=== PATIENT | female | born 1950 | race Caucasian/White ===

== ENCOUNTER → 2017-08-09 | Outpatient (CLI) | payer MEDICARE, OTHER ==
--- NOTE | 2017-08-11 09:22 | MM ---
Reason for exam: screening (asymptomatic). Last mammogram was performed 1 year and 5 months ago. History: Patient is postmenopausal. Physical Findings: A clinical breast exam by your physician is recommended on an annual basis and results should be correlated with mammographic findings. MG 3D Screening Mammo W/Cad Bilateral CC and MLO view(s) were taken. Prior study comparison: March 19, 2016, bilateral MG 3d screening mammo w/cad. May 17, 2014, bilateral MG screening mammo w CAD. There are scattered fibroglandular densities. No significant changes when compared with prior studies. ASSESSMENT: Negative, BI-RAD 1 RECOMMENDATION: Routine screening mammogram of both breasts in 1 year.
== END | disposition home or self-care (01) ==
LOC: RADMAMWWP 16:27
PROVIDERS: ATTEND Family Medicine
DX: Z12.31 Encounter for screening mammogram for malignant neoplasm of breast (principal)
CPT/HCPCS: 77063; 77067

== ENCOUNTER 2017-09-06 09:32 | Day surgery (SDC) | payer MEDICARE, OTHER ==
[2017-09-02 09:09] VITALS: BMI 24.9
[~2017-09-06 09:32] MED LIST: LACTATED RINGERS 1,000 ML IV SCH; LIDOCAINE 1% 20 ML VIAL (10MG/ML) FOR IV START INTRADERMA PRN; MIDAZOLAM 2 MG/2 ML VIAL IV PRN
[2017-09-06 10:10] VITALS: TEMP 98.3
[2017-09-06] MEDS ORDERED: PROPOFOL 10 MG/ML 20 ML VIAL IV ONE (10:55)
[2017-09-06] MEDS ORDERED: LIDOCAINE 1% INJ 10MG/ML (20 ML MDV) ONE (10:55)
[2017-09-06 11:18] VITALS: RESP 16
--- NOTE | 2017-09-06 11:21 | P.PCN ---
Date of Procedure: 09/06/17 Procedure(s) Performed: Procedure: Total colonoscopy. Preoperative diagnosis: Screening for neoplasia. Postoperative diagnosis: Exam within normal limits. Preparation: HalfLytely prep. Sedation: Was provided by anesthesia. Brief clinical history: The patient is a 66-year-old female who is scheduled for this evaluation for screening for neoplasia age being her risk factor as well as history of polyps. She has no abdominal complaints, bleeding or anemia. She does have intermittent diarrhea. No family history of colon cancer. Her last colonoscopy was in 2011. Procedure: With the patient on her left lateral decubitus position and after informed consent and adequate sedation, the perianal area was inspected and it did not show any fissures or fistulas. There were no masses felt on digital rectal examination. The Olympus CFQ 160L video colonoscope was then inserted in the rectum in the usual fashion and advanced to the cecum. I intubated the ileocecal valve and examined the terminal ileum as well. The mucosa appeared healthy. No polyps or tumors were seen or any obvious diverticular disease or other pathology. I retroflexed the endoscope in the rectum before the endoscope was withdrawn. The patient tolerated the procedure well. Plan: The patient was reassured. She will follow-up with you as planned and I recommended repeat exam in 5 years.
[2017-09-06 11:30] VITALS: PULSE 70
[2017-09-06 11:42] VITALS: BP 133/71
== END 2017-09-06 11:57 | disposition home or self-care (01) ==
LOC: ORWHC2ENDO 09:32
DX: R19.7 Diarrhea, unspecified (principal); Z86.010 Personal history of colon polyps; M06.9 Rheumatoid arthritis, unspecified; Z79.82 Long term (current) use of aspirin; Z79.899 Other long term (current) drug therapy
CPT/HCPCS: 45378; J2001; J2704

== ENCOUNTER → 2018-01-21 | Outpatient (CLI) | payer MEDICARE, OTHER ==
--- NOTE | 2018-01-21 11:52 | EST ---
EXERCISE STRESS AGE: 67 SEX: F HT: 5'7" WT: 160 PROTOCOL: Ron Stress Test STAGE: I DURATION OF EXERCISE: 4:39 HEART RATE REST: 90 BLOOD PRESSURE REST: 145/80 MAXIMUM HEART RATE ACHIEVED: 126 MAXIMUM BLOOD PRESSURE: 186/83 85% MPHR: 130 100% MPHR: 153 METS: 6.2 INDICATIONS: Shortness of breath/hypertension. CLINICAL INFORMATION: Baseline heart rate 90 beats per minute. Baseline blood pressure 145/80 mmHg. Patient has a history of hypertension and shortness of breath. Baseline 12-lead ECG shows sinus rhythm with [address] depression inferiorly with PVCs. Patient exercised on a Ron protocol for 4 minutes, 39 seconds only achieving a peak heart rate of 126 beats per minute. She was short of breath and tired. Intermittent PVCs are noted. There was no definite ECG evidence for ischemia. Normal blood pressure response to exercise. No chest pain. IMPRESSION: 1. Baseline abnormal ECG. 2. Poor exercise capacity with shortness of breath and exertion. Normal blood pressure response to exercise. Occasional premature ventricular contractions. No definite ECG evidence for ischemia. Suggest pharmacologic stress testing because of low workload level achieved and given her symptoms. MMODL / IJN: [id number] /
== END | disposition home or self-care (01) ==
LOC: RADNMMAIN 08:47
PROVIDERS: ATTEND Family Medicine
DX: R94.31 Abnormal electrocardiogram [ECG] [EKG] (principal); R06.02 Shortness of breath; R61 Generalized hyperhidrosis
CPT/HCPCS: 93017

== ENCOUNTER → 2018-05-20 | Outpatient (CLI) | payer MEDICARE, OTHER ==
--- NOTE | 2018-05-25 17:11 | ENG ---
ELECTRONYSTAGMOGRAM REPORT VIDEO-ASSISTED ELECTRONYSTAGMOGRAM: DATE OF SERVICE: 05/20/2018. VNG INDICATIONS: This is a 67-year-old female with vertigo starting in January, gradual onset , overall improving; comes and goes in spells not further defined by patient. Dizziness can occur with position changes such as going from a lying to a seated position, looking up or head-back position, turning the head left or right, or bending over or head-down position, and dizziness is made worse by any movements of the head. Denies any hearing loss but has a steady right ear tinnitus. No pain, fullness or pressure in the ears. VNG FINDINGS: Saccades shows intact peak velocities, accuracies and latencies. Gaze with fixation shows no nystagmus in any of the directions of gaze, including centrally with vision denied. Tracking shows no significant breakups. Optokinetic nystagmus shows no significant asymmetry. Static position testing in 6 different positions with eyes opened and with vision denied shows no evoked nystagmus. Caloric testing shows bilateral caloric weakness. Dedham-Hallpike maneuver was not performed. IMPRESSION: There is bilateral caloric weakness, and so vestibulopathy could not be determined. Another test such as the head thrust test or, if available, active with passive rotation testing is required to confirm presence of bilateral vestibular weakness. Other aspects of this VNG study are unremarkable. No nystagmus noted and no signs for central nervous system dysfunction. MMODL / IJN: [id number] / ARNOLDO
== END | disposition home or self-care (01) ==
LOC: NEUROMAIN 12:55
PROVIDERS: ATTEND Otolaryngology
DX: R42 Dizziness and giddiness (principal)
CPT/HCPCS: 92537; 92540

== ENCOUNTER → 2018-06-03 | Outpatient (CLI) | payer MEDICARE, OTHER ==
[~2018-06-03] MED LIST changes: -LACTATED RINGERS 1,000 ML IV SCH; -LIDOCAINE 1% 20 ML VIAL (10MG/ML) FOR IV START INTRADERMA PRN; -MIDAZOLAM 2 MG/2 ML VIAL IV PRN; +REGADENOSON 0.4 MG/5 ML SYRINGE IV ONE
--- NOTE | 2018-06-03 11:30 | NM ---
EXAMINATION TYPE: NM stress lexiscan cardiolite DATE OF EXAM: 06/03/2018 COMPARISON: NONE HISTORY: Chest pain TECHNIQUE: After the intravenous administration of 10.15 mCi Tc 99m Sestamibi - Cardiolite resting S PECT images acquired 45 minutes post injection. The patient received 0.4mg Lexiscan, 25.8 mCi Tc 99m Sestamibi - Stress images obtained [address] injection FINDINGS: Review of stress and rest SPECT images demonstrates no distinct perfusion abnormality. Gated analysi s shows normal wall motion with an estimated left ventricular ejection fraction of 96 %. IMPRESSION: No scintigraphic evidence for reversible ischemia.
--- NOTE | 2018-06-03 20:56 | EST ---
EXERCISE STRESS DATE OF SERVICE: 06/02/2018 AGE: 67 SEX: Female. HT: 5'7" WT: 150 pounds PROTOCOL: Lexiscan Cardiolite STAGE: DURATION OF EXERCISE: HEART RATE REST: 83 BLOOD PRESSURE REST: 160/79 MAXIMUM HEART RATE ACHIEVED: 119 MAXIMUM BLOOD PRESSURE: 179/65 85% MPHR: 130 100% MPHR: 153 METS: INDICATION: Chest pain. CLINICAL INFORMATION: STRESS DATA: Pretesting physical examination showed heart rate 83, pressure 160/79 mmHg. Baseline EKG showed sinus mechanism. Lexiscan 0.4 mg was given over 15 seconds per protocol. Max heart rate was 140 beats per minute. Maximum pressure was 179/65 mmHg. Clinically the patient did not have any symptoms of chest pain or discomfort and the EKG did not show any significant ST or T-wave abnormalities concerning for ischemia. CONCLUSION: 1. Nondiagnostic electrocardiogram stress testing in response to Lexiscan. 2. Please follow up on the Cardiolite portion on separate report. MMODL / IJN: [id number] /
== END | disposition home or self-care (01) ==
LOC: RADNMMAIN 05-31 08:21
PROVIDERS: ATTEND Family Medicine
DX: Z53.9 Procedure and treatment not carried out, unspecified reason (principal)

== ENCOUNTER → 2018-07-06 | Outpatient (CLI) | payer MEDICARE, OTHER ==
[2018-07-06 22:22] LABS: Protein, Total 6.4 g/dL (6.2-8.2)
[2018-07-06 23:42] LABS: Hemoglobin A1C 5.2 % (4.0-6.0)
[2018-07-07 10:39] LABS: Albumin 3.72 g/dL (3.80-4.90); Gamma Globulin 0.89 g/dL (0.70-1.50)
== END | disposition home or self-care (01) ==
LOC: LABWHC1 12:07
PROVIDERS: ATTEND Psychiatry & Neurology Neurology
DX: G62.9 Polyneuropathy, unspecified (principal); M21.379 Foot drop, unspecified foot
CPT/HCPCS: 36415; 82550; 82607; 82747; 83036; 83883; 84165; 85652; 86334

== ENCOUNTER → 2018-09-08 | Outpatient (CLI) | payer MEDICARE, OTHER ==
--- NOTE | 2018-09-12 08:08 | MM ---
Reason for exam: screening (asymptomatic). Last mammogram was performed 1 year and 1 month ago. History: Patient is postmenopausal. Took hormonal contraceptives for 1 month. Physical Findings: A clinical breast exam by your physician is recommended on an annual basis and results should be correlated with mammographic findings. MG 3D Screening Mammo W/Cad Bilateral CC and MLO view(s) were taken. Prior study comparison: August 09, 2017, bilateral MG 3d screening mammo w/cad. March 19, 2016, bilateral MG 3d screening mammo w/cad. There are scattered fibroglandular densities. No significant changes when compared with prior studies. ASSESSMENT: Benign, BI-RAD 2 RECOMMENDATION: Routine screening mammogram of both breasts in 1 year.
== END | disposition home or self-care (01) ==
LOC: RADMAMWWP 10:08
PROVIDERS: ATTEND Family Medicine
DX: Z12.31 Encounter for screening mammogram for malignant neoplasm of breast (principal)
CPT/HCPCS: 77063; 77067

== ENCOUNTER → 2019-11-20 | Outpatient (CLI) | payer MEDICARE, OTHER ==
--- NOTE | 2019-11-22 08:42 | MM ---
Reason for exam: screening (asymptomatic). Last mammogram was performed 1 year and 2 months ago. History: Patient is postmenopausal. Took hormonal contraceptives for 1 month. Physical Findings: A clinical breast exam by your physician is recommended on an annual basis and results should be correlated with mammographic findings. MG 3D Screening Mammo W/Cad Bilateral CC and MLO view(s) were taken. Prior study comparison: September 08, 2018, bilateral MG 3d screening mammo w/cad. August 09, 2017, bilateral MG 3d screening mammo w/cad. There are scattered fibroglandular densities. No significant changes when compared with prior studies. ASSESSMENT: Benign, BI-RAD 2 RECOMMENDATION: Routine screening mammogram of both breasts in 1 year.
== END | disposition home or self-care (01) ==
LOC: RADMAMWWP 15:38
PROVIDERS: ATTEND Family Medicine
DX: Z12.31 Encounter for screening mammogram for malignant neoplasm of breast (principal)
CPT/HCPCS: 77063; 77067

== ENCOUNTER → 2020-05-09 | Outpatient (CLI) | payer MEDICARE, OTHER ==
--- NOTE | 2020-05-09 15:46 | BD ---
EXAMINATION TYPE: Axial Bone Density DATE OF EXAM: 05/09/2020 COMPARISON: 02.20.2002 CLINICAL HISTORY: 69 YR OLD FEMALE.....ICD-10 CODE: M85.80 DISORDER OF BONE Height: 65 Weight: 175 FRAX RISK QUESTIONS: Rheumatoid Arthritis: YES RISK FACTORS HISTORY OF: HX OF ELBOW FX A CHILD Postmenopausal woman: YES AT AGE 55 YRS OLD Lost more than 2 inches in height since high school: YES Hyperparathyroidism: NO Adrenal Insufficiency: NO MEDICATIONS: Additional Medications: BP MEDS, ANTIDEPRESSANT, XANGEL FOR RA, STATIN FOR CHOLESTEROL, VIT D AND ADRIENNE CIUM, Additional History: RA, HYPERTENSION, CHOLESTEROL, EXAM MEASUREMENTS: Bone mineral densitometry was performed using the [employer]. Bone mineral density as measured about the Lumbar spine is: ----- L1-L4(G/cm2): 1.059 T Score Values are as follows: ----- L1: -2.8 ----- L2: -1.0 ----- L3: 0.0 ----- L4: -0.5 ----- L1-L4: -1.0 Bone mineral density has: Increased 1.5% since study of: 02.20.2002 Bone mineral density about the R hip (g/cm2): 0.910 Bone mineral density about the L hip (g/cm2): 0.903 T Score values are as follows: -----R Neck: -1.4 -----L Neck: -1.5 -----R Total: -0.8 -----L Total: -0.8 Bone mineral density has: Decreased -14.4% since study of: 02.20.2002 FRAX%s: THERE IS A 19.6% CHANCE FOR A MAJOR OSTEOPOROTIC FX AND A 3.5% FOR HIP......PROBABILITY FO R FX IN 10 YRS TIME IMPRESSION: Osteopenia (T Score between -2.5 and -1). There is slightly increased risk of fracture and the patient may be considered for treatment. Re-Screen 2-5 years. NOTE: T-SCORE=SD OF THE YOUNG ADULT MEAN.
== END | disposition home or self-care (01) ==
LOC: RADBDWWP 12:54
PROVIDERS: ATTEND Family Medicine
DX: M85.80 Other specified disorders of bone density and structure, unspecified site (principal)
CPT/HCPCS: 77080

== ENCOUNTER → 2020-08-01 | Outpatient (CLI) | payer MEDICARE, OTHER ==
--- NOTE | 2020-08-07 11:20 | P.ARTDOP ---
Arterial Doppler LOWER EXTREMITY ARTERIAL DOPPLER: DATE OF SERVICE: 08/01/2020 Reason for study: Presurgical assessment. Doppler waveforms: Multiphasic bilaterally throughout with good toe waveforms. Pulse volume recording: []. Pressure gradients: None. Ankle-brachial indices: Greater than 1 on the right. 0.97 on the left. Toe brachial indices: 0.73 on the right, 0.64 on the left Impression: Normal study.
== END | disposition home or self-care (01) ==
LOC: RADUSWWP 08:39
PROVIDERS: ATTEND Podiatrist Foot & Ankle Surgery
DX: Z01.818 Encounter for other preprocedural examination (principal)
CPT/HCPCS: 93923

== ENCOUNTER → 2020-12-12 | Outpatient (CLI) | payer MEDICARE, OTHER ==
--- NOTE | 2020-12-13 12:45 | MM ---
Reason for exam: screening (asymptomatic). Last mammogram was performed 1 year and 1 month ago. History: Patient is postmenopausal. Took hormonal contraceptives for 1 month. Physical Findings: A clinical breast exam by your physician is recommended on an annual basis and results should be correlated with mammographic findings. MG 3D Screening Mammo W/Cad Bilateral CC and MLO view(s) were taken. Prior study comparison: November 20, 2019, bilateral MG 3d screening mammo w/cad. September 08, 2018, bilateral MG 3d screening mammo w/cad. The breast tissue is heterogeneously dense. This may lower the sensitivity of mammography. There is no discrete abnormality. No significant changes when compared with prior studies. ASSESSMENT: Negative, BI-RAD 1 RECOMMENDATION: Routine screening mammogram of both breasts in 1 year.
== END | disposition home or self-care (01) ==
LOC: RADMAMWWP 10:47
PROVIDERS: ATTEND Family Medicine
DX: Z12.31 Encounter for screening mammogram for malignant neoplasm of breast (principal); Z78.0 Asymptomatic menopausal state; Z79.3 Long term (current) use of hormonal contraceptives
CPT/HCPCS: 77063; 77067

== ENCOUNTER → 2021-12-24 | Outpatient (CLI) | payer MEDICARE, OTHER ==
--- NOTE | 2021-12-25 08:55 | MM ---
Reason for Exam: Screening (asymptomatic). Last screening mammogram was performed 12 month(s) ago. Patient History: Menarche at age 12. First Full-Term at age 21. Postmenopausal. Hormonal Contraceptives for 1 month. Maternal aunt had breast cancer, age 65. Risk Values: Mine 5 year model risk: 1.6%. NCI Lifetime model risk: 4.3%. Prior Study Comparison: 09/08/2018 Bilateral Screening Mammogram, [facility]. 11/20/2019 Bilateral Screening Mammogram, [facility]. 12/12/2020 Bilateral Screening Mammogram, [facility]. Tissue Density: The breast tissue is almost entirely fat. Findings: Analyzed By CAD. There is no suspicious group of microcalcifications or new suspicious mass in either breast. Overall Assessment: Negative, BI-RAD 1 Management: Screening Mammogram of both breasts in 1 year. A clinical breast exam by your physician is recommended on an annual basis and results should be correlated with mammographic findings. [facility] will attempt to contact patient to return for supplemental views and ultrasound if indicated. Electronically signed and approved by: Michele Brandt DO
== END | disposition home or self-care (01) ==
LOC: RADMAMWWP 14:53
PROVIDERS: ATTEND Family Medicine
DX: Z12.31 Encounter for screening mammogram for malignant neoplasm of breast (principal); Z78.0 Asymptomatic menopausal state; Z80.3 Family history of malignant neoplasm of breast
CPT/HCPCS: 77063; 77067

== ENCOUNTER → 2024-01-17 | Outpatient (CLI) | payer MEDICARE, OTHER ==
--- NOTE | 2024-01-17 14:45 | MM ---
Reason for Exam: Screening (asymptomatic). Last screening mammogram was performed 12 month(s) ago. Patient History: Menarche at age 12. First Full-Term at age 21. Postmenopausal. Hormonal Contraceptives for 1 month. Maternal aunt had breast cancer, age 65. Risk Values: Mine 5 year model risk: 1.6%. NCI Lifetime model risk: 3.9%. Prior Study Comparison: 12/12/2020 Bilateral Screening Mammogram, [facility]. 12/24/2021 Bilateral MG 3D screening mammo w/cad, [facility]. 01/13/2023 Bilateral MG 3D screening mammo w/cad, [facility]. Tissue Density: The breasts are almost entirely fatty. Findings: Analyzed By CAD. Right breast: There is no suspicious group of microcalcifications or new suspicious mass. Left breast: There is no suspicious group of microcalcifications or new suspicious mass. Overall Assessment: Negative, BI-RAD 1 Management: Screening Mammogram of both breasts in [address] [facility] will attempt to contact patient to return for supplemental views and ultrasound if indicated. Patient should continue monthly self-breast exams. A clinical breast exam by your physician is recommended on an annual basis. This exam should not preclude additional follow-up of suspicious palpable abnormalities. Note on Mine scores and lifetime risk: 1. A Mine score greater than 3% is considered moderate risk. If this is the case, consider specialist referral to assess eligibility for a risk reducing agent. 2. If overall lifetime risk for the development of breast cancer is 20% or higher, the patient may qualify for future screening with alternating mammogram and breast MRI. [facility], , 01/17/2024 2:39 PM. Electronically signed and approved by: Michele Brandt DO
== END | disposition home or self-care (01) ==
LOC: RADMAMWWP 10:28
PROVIDERS: ATTEND Family Medicine
DX: Z12.31 Encounter for screening mammogram for malignant neoplasm of breast
CPT/HCPCS: 77063; 77067

== ENCOUNTER → 2024-02-25 | Outpatient (CLI) | payer MEDICARE, OTHER ==
--- NOTE | 2024-02-26 08:38 | CT ---
EXAMINATION TYPE: CT forearm RT wo con DATE OF EXAM: 02/25/2024 COMPARISON: None CLINICAL INDICATION: Female, 73 years old with history of S52.691G OTH FX LOWER END OF R ULNA, SUBS F OR CLOS; PHH, Other closed fx of distal end of right ulna with delayed healing. CT DLP: 273.2 mGycm Automated exposure control for dose reduction was used. FINDINGS: There is a mildly displaced oblique fracture through the distal ulnar metaphysis. There is no evidenc e for callus formation or healing. The right radius is intact. The carpal bones and articulations are normal. IMPRESSION: OBLIQUE MILDLY DISPLACED NONHEALED FRACTURE OF THE DISTAL LEFT ULNA. [facility], , 02/26/2024 8:35 AM
== END | disposition home or self-care (01) ==
LOC: RADCTMAIN 14:39
PROVIDERS: ATTEND Orthopaedic Surgery
DX: S52.691G Other fracture of lower end of right ulna, subsequent encounter for closed fracture with delayed healing (principal); S52.692A Other fracture of lower end of left ulna, initial encounter for closed fracture